=== PATIENT | female | born 1935 ===

== ENCOUNTER 2017-07-26 17:04 | Inpatient (IN) | payer OTHER ==
[~2017-07-26] VITALS: Ht 157.5 cm; Wt 60.3 kg
[2017-07-26] MEDS ORDERED: HYDROCHLOROTH12.5 M1 (20:25)
[2017-07-26] MEDS ORDERED: ALDACTONE25 MG (20:26)
[2017-07-26] MEDS ORDERED: METOPROLOL TART25 MG (20:26)
[2017-07-26] MEDS ORDERED: SEROQUEL50 MG (20:27)
[2017-07-26] MEDS ORDERED: DICLOFENAC POTA50 MG (20:27)
[2017-07-26] MEDS ORDERED: SIMVASTATIN20 MG (20:27)
[2017-07-26] MEDS ORDERED: PRINIVIL20 MG (20:28)
[2017-07-26] MEDS ORDERED: VITAMIN B-121000 MCG (20:28)
[2017-07-26] MEDS ORDERED: CITRACAL + D E1 EACH (20:29)
[2017-07-26] MEDS ORDERED: PROTECT PLUS S1 EACH (20:29)
[2017-07-26] MEDS ORDERED: LEVOTHYROXINE75 MCG (20:29)
[2017-07-26] MEDS ORDERED: HUMALOG100 UNIT/1 (20:30)
[2017-07-26] MEDS ORDERED: VITAMIN D32000 UNIT (20:30)
[2017-07-26] MEDS ORDERED: LANTUS SOL100 UNIT/1 (20:30)
[2017-08-03] MEDS ORDERED: LOPRESSOR25 MG PO (09:29)
[2017-08-03] MEDS ORDERED: ALDACTONE25 MG PO (09:31)
[2017-08-03] MEDS ORDERED: CITRACAL + D E1 EACH PO (09:32)
[2017-08-03] MEDS ORDERED: LACTULOSE20 GM/30 M PO (09:33)
[2017-08-03] MEDS ORDERED: LIDODERM1 EACH TOP (09:35)
[2017-08-03] MEDS ORDERED: PRE PROTEIN 2030 ML PO (09:36)
[2017-08-03] MEDS ORDERED: HumaLOG 100 UNIT/1 M SUBCUTANEO (09:37)
[2017-08-03] MEDS ORDERED: NeurRONTin 100mg cap PO (09:37)
[2017-08-03] MEDS ORDERED: Lantus 1000 UNITS/10 SUBCUTANEO (09:37)
[2017-08-03] MEDS ORDERED: Intestinex CAP PO (09:37)
== END 2017-08-03 17:33 | disposition other institution (70) | DRG 374 ==
LOC: MEDI 17:04
PROC: BW21Y0Z Computerized Tomography (CT Scan) of Abdomen and Pelvis using Other Contrast, Unenhanced and Enhanced (ICD-10-PCS; principal; 2017-07-27)
DX: C16.3 Malignant neoplasm of pyloric antrum (principal); K72.00 Acute and subacute hepatic failure without coma; C77.2 Secondary and unspecified malignant neoplasm of intra-abdominal lymph nodes; C78.7 Secondary malignant neoplasm of liver and intrahepatic bile duct; C78.02 Secondary malignant neoplasm of left lung; C78.01 Secondary malignant neoplasm of right lung; R18.0 Malignant ascites; N17.8 Other acute kidney failure; E46 Unspecified protein-calorie malnutrition; A09 Infectious gastroenteritis and colitis, unspecified; D68.4 Acquired coagulation factor deficiency; G89.3 Neoplasm related pain (acute) (chronic); N18.3 Chronic kidney disease, stage 3 (moderate); D63.1 Anemia in chronic kidney disease; D63.0 Anemia in neoplastic disease; E87.5 Hyperkalemia; E88.09 Other disorders of plasma-protein metabolism, not elsewhere classified
CPT/HCPCS: 240